=== PATIENT | female | born 1985 | race Caucasian/White ===

== ENCOUNTER → 2021-01-23 15:28 | Outpatient (CLI) | payer OTHER, SELFPAY ==
[2021-01-23] MEDS: COVID-19 VACC #1, MRNA(MOD) 100 MCG/0.5 ML VIAL IM (15:33)
== END ==
PROVIDERS: Visit Provider Internal Medicine
DX: Z23 Encounter for immunization (principal)
CPT/HCPCS: 0011A; 91301

== ENCOUNTER → 2021-02-20 15:03 | Outpatient (CLI) | payer OTHER, SELFPAY ==
[2021-02-20] MEDS: COVID-19 VACC #2, MRNA(MOD) 100 MCG/0.5 ML VIAL IM (15:10)
== END ==
PROVIDERS: Visit Provider Internal Medicine
DX: Z23 Encounter for immunization (principal)
CPT/HCPCS: 0012A; 91301